=== PATIENT | female | born 1950 | race Caucasian/White ===

== ENCOUNTER → 2021-10-30 | Outpatient (CLI) | payer MEDICARE ==
--- NOTE | 2021-10-30 17:27 | CONS ---
CONSULTATION DATE OF SERVICE: 10/30/2021 This 71-year-old lady has [facility] for multiple movements during sleep and awakenings from sleep. HISTORY OF PRESENT ILLNESS/SLEEP-WAKE EVALUATION: Patient's usual sleep schedule is from 10 p.m. to 5 a.m. seven days a week. She does have problems with falling asleep and may feel discomfort in her legs, restless leg symptoms. No TV in bedroom. She sleeps in different positions during the night. She moves; sometimes her covers are partially off when she moves her legs under the covers. She sleeps by herself, so there is no clear information about snoring. She wakes up from sleep multiple times with two episodes of nocturia. No history of hypnagogic hallucinations, sleep paralysis or cataplexy. During the day she has episodes of anxiety. She takes a nap at 2 p.m. She drinks two caffeinated beverages during the day. PAST MEDICAL HISTORY: Positive for hyperlipidemia, allergies, sinus problems. PAST SURGICAL HISTORY: Breast lumpectomy; pathology was benign. MEDICATIONS: 1. Pravastatin 20 mg once a day. 2. Sertraline 50 mg once a day. 3. Fexofenadine 60 mg twice a day. 4. Fluticasone. 5. Albuterol inhaler. Sometimes she has difficulties breathing through the nose and some difficulties breathing. Albuterol helps her; no clear episodes of wheezing, according to patient. FAMILY HISTORY: Hypertension, heart problems, arthritis. SOCIAL HISTORY: Negative for smoking. Alcohol consumption rarely. REVIEW OF SYSTEMS: Significant amount of movements during sleep, multiple awakenings from sleep, restless leg symptoms. No fevers. No double vision. No recent chest pain. No shortness of breath. No abdominal pain. No bleeding episodes. No blood in the urine. No seizure episodes. PHYSICAL EXAMINATION: GENERAL APPEARANCE: Pleasant 71-year-old lady without distress, moving her legs during interview. VITAL SIGNS: BP 101/62, HR 69, RR 12, height 5 feet 3/4 inches, weight 110.8 pounds, body mass index 20.9, temperature 97.5, oxygen saturation at room air 97%. HEENT: PERRLA, EOMI, evaluation of oropharynx showed tongue protrudes midline. Wide pillars. Small oropharyngeal airspace. NECK: Supple, no JVD. Thyroid is not palpable. LUNGS: Clear to percussion and to auscultation. Good air exchange. No wheezing or rhonchi. HEART: S1, S2 regular. No murmurs, gallops, or rubs. ABDOMEN: Soft and nontender. Bowel sounds are present. No organomegaly appreciated. EXTREMITIES: No clubbing or cyanosis. [employer]: Awake, alert, and oriented X3. Cranial nerves 2 to 7 intact. There is no fasciculation or atrophy. noted. No focal deficits observed. IMPRESSION: 1. Significant amount of movements during sleep with episodes of multiple awakenings; periodic limb movements. 2. Restless leg symptoms while the patient is falling asleep. 3. Patient sleeps by herself; no clear information about snoring, but the oropharynx has a slightly small airspace and the patient has 2 episodes of nocturia during sleep; possibility of abnormalities of respiration during sleep. 4. Hyperlipidemia. 5. Allergies. 6. Sinus problems. 7. Status post breast biopsy for benign lesion. PLAN: 1. Polysomnography to check for periodic limb movements and to evaluate patient's breathing during sleep. 2. Following plan after reviewing results of sleep study. 3. Please check iron profile, including ferritin level. Low level of iron may increase risk for restless legs syndrome and periodic limb movements. 4. Precautions related to driving. No driving if feeling any sleepiness. 5. Sleep hygiene with regular time in bed for at least 7-1/2 to 8 hours. Thank you very much for referring this patient for consultation. Sincerely, Goyo Sandra MD, PhD, FAASM Diplomat of [employer] Sleep Medicine [employer] of [employer] [place] [employer] [facility] [place] MMODL / DARRELLN: [id number] /
== END ==
LOC: SLEEP 11:36
PROVIDERS: ATTEND Internal Medicine
DX: G47.61 Periodic limb movement disorder (principal); G25.81 Restless legs syndrome; R35.1 Nocturia; E78.5 Hyperlipidemia, unspecified; T78.40XA Allergy, unspecified, initial encounter; J34.9 Unspecified disorder of nose and nasal sinuses; D24.9 Benign neoplasm of unspecified breast; Z98.890 Other specified postprocedural states
CPT/HCPCS: 99202